=== PATIENT | female | born 1950 | race Caucasian/White ===

== ENCOUNTER → 2021-10-26 08:13 | Outpatient (CLI) | payer MEDICARE, SELFPAY ==
--- NOTE | ~2021-10-26 | US_ITS ---
EXAMINATION: US abdomen limited DATE: 10/26/2021 09:00 INDICATION: Abdominal pain TECHNIQUE: Multiple grayscale and Doppler ultrasound images of the abdomen were obtained. COMPARISON: None available FINDINGS: The head and body of the pancreas are normal. The pancreatic tail is obscured by bowel gas. The liver demonstrates increased echogenicity, heterogenous echotexture, and decreased through trans mission. There is nodularity of the liver surface. Normal hepatopetal flow in the main portal vein. T he gallbladder is surgically absent. The normal common bile duct measures 7 mm. IMPRESSION: 1. No sonographic correlate for the patient's symptoms. 2. Cirrhosis Reviewed, dictated and finalized at location L.
== END ==
LOC: EXPGOSH 08:18 → EXPGOSHRAD 14:48
PROVIDERS: PCP Nurse Practitioner Family; Visit Provider Nurse Practitioner Family
DX: R74.8 Abnormal levels of other serum enzymes (principal); K74.69 Other cirrhosis of liver
CPT/HCPCS: 76705

== ENCOUNTER 2021-11-19 01:13 | Day surgery (SDC) | payer MEDICARE, SELFPAY ==
[2021-11-13 13:12] VITALS: BMI 44.1
[2021-11-19 08:35] VITALS: BP 172/48; PULSE 72; RESP 20; TEMP 36.2; O2SAT 96; BMI 42.6
[2021-11-19] MEDS: LACTATED RINGERS 1,000 ML 150 ML IV CONT (08:55)
[2021-11-19 08:58] LABS: Glucose Point of Care 173 mg/dl (65-105)
--- NOTE | 2021-11-19 09:19 | WPDANESEPPF ---
Anes - Initial Pre Proc Eval Procedure: Operation Date: 11/19/21 10:15 Proposed Procedures p Esophagogastroduodenoscopy & Screening Colonoscopy - Osman Shaw MD Date/Time: 11/19/21 09:19 Surgeon: Osman Shaw MD Pre Op Diagnosis: dysphagia, epigastric pain, neoplasm screening Patient Data Age: 71 Gender: F Height: 1.52 m Weight: 99.1 kg Last Vital Signs Temp 97.2 F L 11/19/21 08:35 Pulse 72 11/19/21 08:35 Resp 20 11/19/21 08:35 BP 172/48 H 11/19/21 08:35 Pulse Ox 96 11/19/21 08:35 O2 Del Method Room Air 11/19/21 08:35 Allergies Allergy/AdvReac Type Severity Reaction Status Date / Time niacin Allergy Hives Verified 11/19/21 08:33 Home Medications Medication Instructions Recorded Confirmed Type atorvastatin 40 mg tablet (Lipitor) 40 mg PO DAILY 10/10/21 11/13/21 History fenofibrate nanocrystallized 145 145 mg PO DAILY 10/10/21 11/13/21 History mg tablet (Tricor) fluoxetine 20 mg capsule (Prozac) 20 mg PO DAILY 10/10/21 11/13/21 History insulin lispro 100 unit/mL 1 sliding scale dose subcut 10/10/21 11/13/21 History subcutaneous pen (Humalog KwikPen USEASDIRECTD (U-100) Insulin) irbesartan 300 mg tablet 300 mg PO DAILY 10/10/21 11/13/21 History lisinopril 40 mg tablet 40 mg PO DAILY 10/10/21 11/13/21 History magnesium oxide 400 mg PO TID 10/10/21 11/13/21 History metoprolol succinate 50 mg capsule 50 mg PO DAILY 10/10/21 11/13/21 History sprinkle, ext. release 24 hr omeprazole 40 mg capsule,delayed 40 mg PO DAILY 10/10/21 11/13/21 History release oxybutynin chloride 15 mg 15 mg PO DAILY 10/10/21 11/13/21 History tablet,extended release 24 hr spironolactone 25 mg tablet 25 mg PO DAILY 10/10/21 11/13/21 History (Aldactone) amlodipine 5 mg tablet 5 mg PO DAILY 11/13/21 11/13/21 History bupropion HCl 150 mg tablet,12 hr 150 mg PO BID 11/13/21 11/13/21 History sustained-release insulin glargine 100 unit/mL (3 55 unit subcut DAILY 11/13/21 11/13/21 History mL) subcutaneous pen (Lantus Solostar U-100 Insulin) Laboratory Tests 11/19/21 08:54 POC Capillary Glucose 173 mg/dl H mg/dl (65-105) Patient hx anesthesia problems: none Family hx anesthesia problems: none Results Review: All pre-operative results and documents have been reviewed as part of the pre-operative evaluation. [facility] Past Medical History Medical History (Updated 10/10/21 @ 17:16 by BERRY Park) Anxiety CHF (congestive heart failure) Diabetes Fatty liver Heart disease HLD (hyperlipidemia) HTN (hypertension) Obese Social History Social History Smoking packs per day: 0.5 Smoking cigarettes per day: 10.0 Years smoked: 20 Smoking pack-years: 10.00 Smoking status: Former smoker Tobacco type: cigarettes Alcohol intake: never Substance use: never Substance use type: does not use Living arrangements: with family Spiritual care concerns: No Anes - Eval Final PreProcedure Day of Procedure 11/19/21 09:19 Patient weight: morbidly obese Heart: regular rate and rhythm and murmur Lungs: clear to auscultation Airway: Mallampati scale class III Neurological: alert and oriented Last oral intake: >/= 8 hours ASA classification: IV Emergent: no Anesthetic plan: proceed Anesthesia type and monitoring: general GIVS and standard monitoring Results Review: All pre-operative results and documents have been reviewed as part of the pre-operative evaluation. Informed Consent: The patient's anesthetic plan and its attendant risks and benefits were discussed with the patient/family/POA. Questions were solicited and answers provided to the satisfaction of the patient/family/POA.
--- NOTE | 2021-11-19 09:34 | PM.HPGS ---
History of Present Illness History of Present Illness Consent: Risks, benefits, and alternatives have been discussed and questions answered. Patient agrees to proceed with procedure. Chief complaint: dysphagia, epigastric pain, neoplasm screening Narrative: Deborah Cadet is a 71 year old female with h/o CHF, DM with intermittent abdominal pain and gerd using omeprazole, never had egd. Last colonoscopy 6 years ago and was told to repeat in 5 years Review of Systems Constitutional: Constitutional: Denies headache(s) and Denies weakness Eyes: Eyes: Denies blurry vision ENT: Reports Normal hearing present, Denies headache(s) and Denies neck pain Cardiovascular: Cardiovascular: Denies chest pain and Denies dyspnea Respiratory: Respiratory: Denies dyspnea Gastrointestinal: Gastrointestinal: Reports no additional gastrointestinal complaints Genitourinary: Genitourinary: Denies dysuria Musculoskeletal: Musculoskeletal: Denies neck pain Integumentary/Breasts: Skin/Breast: Denies dry skin Neurologic: Reports Normal hearing present, Denies headache(s) and Denies weakness Psychiatric: Psychiatric: Denies anxiety Endocrine: Endocrine: Denies change in body appearance Hematologic/Lymphatic: Hematologic/Lymphatic: Denies easy bleeding Allergic/Immunologic: Allergic/Immunologic: Denies urticaria PMFSH Past Medical History Medical History (Updated 11/19/21 @ 09:35 by Osman Shaw MD) Abdominal pain Anxiety CHF (congestive heart failure) Colon cancer screening Diabetes Fatty liver GERD (gastroesophageal reflux disease) Heart disease HLD (hyperlipidemia) HTN (hypertension) Obese Social History Social History Smoking packs per day: 0.5 Smoking cigarettes per day: 10.0 Years smoked: 20 Smoking pack-years: 10.00 Smoking status: Former smoker Tobacco type: cigarettes Alcohol intake: never Substance use: never Substance use type: does not use Living arrangements: with family Spiritual care concerns: No Meds Home Medications and Allergies Home Medications Medication Instructions Recorded Confirmed Type atorvastatin 40 mg tablet (Lipitor) 40 mg PO DAILY 10/10/21 11/13/21 History fenofibrate nanocrystallized 145 145 mg PO DAILY 10/10/21 11/13/21 History mg tablet (Tricor) fluoxetine 20 mg capsule (Prozac) 20 mg PO DAILY 10/10/21 11/13/21 History insulin lispro 100 unit/mL 1 sliding scale dose subcut 10/10/21 11/13/21 History subcutaneous pen (Humalog KwikPen USEASDIRECTD (U-100) Insulin) irbesartan 300 mg tablet 300 mg PO DAILY 10/10/21 11/13/21 History lisinopril 40 mg tablet 40 mg PO DAILY 10/10/21 11/13/21 History magnesium oxide 400 mg PO TID 10/10/21 11/13/21 History metoprolol succinate 50 mg capsule 50 mg PO DAILY 10/10/21 11/13/21 History sprinkle, ext. release 24 hr omeprazole 40 mg capsule,delayed 40 mg PO DAILY 10/10/21 11/13/21 History release oxybutynin chloride 15 mg 15 mg PO DAILY 10/10/21 11/13/21 History tablet,extended release 24 hr spironolactone 25 mg tablet 25 mg PO DAILY 10/10/21 11/13/21 History (Aldactone) amlodipine 5 mg tablet 5 mg PO DAILY 11/13/21 11/13/21 History bupropion HCl 150 mg tablet,12 hr 150 mg PO BID 11/13/21 11/13/21 History sustained-release insulin glargine 100 unit/mL (3 55 unit subcut DAILY 11/13/21 11/13/21 History mL) subcutaneous pen (Lantus Solostar U-100 Insulin) Allergies Allergy/AdvReac Type Severity Reaction Status Date / Time niacin Allergy Hives Verified 11/19/21 08:33 Vital Signs Vital Signs - 24 hr 11/19/21 08:35 Temperature 97.2 F L Pulse Rate 72 Respiratory Rate 20 Blood Pressure 172/48 H Pulse Oximetry 96 Oxygen Delivery Room Air Exam Const: General: comfortable and no acute distress HENMT: General nose exam: Normal nares present Eyes: General: appearance normal, both eyes and all related structures Neck: Neck: no JVD Resp: Auscultation:
--- NOTE | 2021-11-19 10:13 | SUR.OPER ---
EGD START 947, END 951 COLONOSCOPY START 958, END 1008
[2021-11-19 10:16] VITALS: BP 156/56; PULSE 69; RESP 20; O2SAT 100
[2021-11-19 10:26] VITALS: BP 153/63; PULSE 68; RESP 20; O2SAT 95
[2021-11-19 10:33] LABS: Glucose Point of Care 157 mg/dl (65-105)
[2021-11-19 10:36] VITALS: BP 145/72; PULSE 68; RESP 18; O2SAT 97
== END 2021-11-19 10:58 | disposition home or self-care (01) ==
PROVIDERS: Visit Provider Internal Medicine Gastroenterology
PROC: 0DJ08ZZ Inspection of Upper Intestinal Tract, Via Natural or Artificial Opening Endoscopic (ICD-10-PCS; CPT 43235; principal; 2021-11-19 10:15)
DX: Z12.11 Encounter for screening for malignant neoplasm of colon (principal); D12.2 Benign neoplasm of ascending colon; K57.30 Diverticulosis of large intestine without perforation or abscess without bleeding; K64.8 Other hemorrhoids; K21.9 Gastro-esophageal reflux disease without esophagitis; R10.84 Generalized abdominal pain; K29.50 Unspecified chronic gastritis without bleeding; I50.9 Heart failure, unspecified; E11.9 Type 2 diabetes mellitus without complications; R10.9 Unspecified abdominal pain; F41.9 Anxiety disorder, unspecified; K76.0 Fatty (change of) liver, not elsewhere classified; I11.0 Hypertensive heart disease with heart failure; E78.5 Hyperlipidemia, unspecified; Z87.891 Personal history of nicotine dependence; Z79.4 Long term (current) use of insulin; E66.9 Obesity, unspecified; Z68.41 Body mass index [BMI] 40.0-44.9, adult
CPT/HCPCS: 45385; 43239; 82948; 88305; J2704; J7120